=== PATIENT | female | born 1960 | race Two or more races ===

== ENCOUNTER 2020-10-10 12:41 | Emergency (ER) | payer MEDICAID, OTHER ==
--- NOTE | 2020-10-10 13:24 | NUR ---
20MG ETOMIDATE FOLLOWED BY 100MG SUCC GIVEN AT THIS TIME PER VERBAL ORDER FROM .
[2020-10-10] MEDS ORDERED: PROPOFOL 100 ML IV PRN (13:30)
[2020-10-10] MEDS ORDERED: SUCCINYLCHOLINE 20 MG/ML, 10ML IVPush ONE (13:30)
[2020-10-10] MEDS ORDERED: ETOMIDATE 20 MG/10 ML IV ONE (13:30)
[2020-10-10 13:41] LABS: BASOPHILS % (AUTO) 1 % (0-1); EOSINOPHILS % (AUTO) 1 % (1-7); LYMPHOCYTES % (AUTO) 15 % (22-44); MEAN CORPUSCULAR HEMOGLOBIN 28.7 pg (27.0-34.8); MEAN CORPUSCULAR HGB CONC 32.5 g/dL (32.4-35.8); MEAN PLATELET VOLUME 9.3 fL (7.4-10.4); MONOCYTES % (AUTO) 2 % (2-9); NEUTROPHILS % (AUTO) 81 % (42-75); PLATELET COUNT 151 x10^3/uL (130-400); RED BLOOD COUNT 4.26 x10^6/uL (3.82-5.3); RED CELL DISTRIBUTION WIDTH 14.9 % (9.6-15.2)
[2020-10-10 13:46] LABS: MD NO
[2020-10-10 13:49] LABS: INTERNATIONAL NORMALIZED RATIO 1.12 (0.93-1.1); PROTHROMBIN TIME 11.9 Seconds (9.6-11.5)
[2020-10-10] MEDS ORDERED: [UNRECOGNIZED DRUG - OTHER] IV ONE (14:00)
[2020-10-10] MEDS ORDERED: HUM PROTHROMBIN CPLX IV ONE (14:00)
--- NOTE | 2020-10-10 14:32 | NUR ---
LATE ENTRY: PT BIB [facility] FROM HOME D/T DECEREASING LOC. HX OF PREVIOUS CVA. LEFT SIDE DEFICITS. CODE NEURO CALLED. PT TRANSPORTED TO CT SCAN.
[2020-10-10] MEDS ORDERED: LINA5TAB PO (14:41)
[2020-10-10] MEDS ORDERED: APIX5TAB PO (14:41)
[2020-10-10] MEDS ORDERED: HYDR25TA6 PO (14:41)
[2020-10-10] MEDS ORDERED: ATOR-2 PO (14:41)
[2020-10-10] MEDS ORDERED: METF500T17 PO (14:41)
[2020-10-10] MEDS ORDERED: CARV6.252 PO (14:42)
[2020-10-10] MEDS ORDERED: LOSA25TA25 PO (14:42)
[2020-10-10 14:48] VITALS: BP 123/73
--- NOTE | 2020-10-10 14:49 | NUR ---
REPORT TO [facility]. PT BEING TRANSPORTED TO [facility].
== END 2020-10-10 15:07 | disposition short-term general hospital (02) ==
LOC: ED 13:59
DX: I62.9 Nontraumatic intracranial hemorrhage, unspecified (principal); R41.82 Altered mental status, unspecified; R00.0 Tachycardia, unspecified; R11.10 Vomiting, unspecified
CPT/HCPCS: 31500; 36415; 36600; 70450; 80047; 82803; 85025; 85610; 85730; 93005; 99291; C9132; J0330; J2704; 94002